=== PATIENT | female | born 1985 | race Caucasian/White ===

== ENCOUNTER 2020-03-19 06:21 | Emergency (ER) | payer BC, MEDICAID ==
[~2020-03-19] VITALS: Ht 167.7 cm; Wt 85.6 kg
[2020-03-19] MEDS ORDERED: LIDOCAINE 1% INJ 20 ML 20 ML VIAL ONE (06:24)
--- OUTSIDE RECORDS SUMMARY | 2020-03-19 06:32 | XMS REPORT | Continuity of Care Document ---
Author Organization Unknown Address Unknown Phone Unavailable Allergies There is no data. Medications There is no data. Problems There is no data. Procedures There is no data. Results Test Result Range SUREPATH PAP AND HPV mRNA E6/E7 REFLEX G ENOTYPES 16, 18/45 - 06/15/19 17:49 CLINICAL INFORMATION: NRG LMP: 05/28/2019 NRG PREV. PAP: 01/04/2018 NRG PREV. BX: NRG SOURCE: Cervix NRG STATEMENT OF ADEQUACY: NRG INTERPRETATION/RESULT: NRG CONTROL ROOM TENDER: NRG HPV mRNA E6/E7, SUREPATH VIAL Not Detected NOT DETECTED COMMENT NRG CULTURE, GENITAL - 06/15/19 17:49 CULTURE, GENITAL SEE NOTE NRG Encounters ACCT No. Visit Date/Time Discharge Status Pt. Type Provider Facility Loc./Unit Complaint [id number] 12/27/2019 13:00:00 12/27/2019 23:59: 59 CLS Outpatient [facility] MARIJA POWELL [facility] [id number] 06/15/2019 17:00:00 Document Registration
--- OUTSIDE RECORDS SUMMARY | 2020-03-19 06:32 | XMS REPORT ---
Author Author Cinda Pat Organization [facility] Address [address] [place] [address] Care Team Providers Care Production Line Welder Name Role Phone ramaGEORGIASUMIRENEEDAVID Unavailable PROBLEMS Type Condition ICD9-CM Code [id number] Code Onset Dates Condition S tatus SNOMED Code Problem Secondary female infertility N97.9 Jul, 201 8 Active 49023843 Problem Mild intermittent asthma with exacerbation J45.21 Active [id number] ALLERGIES No Information ENCOUNTERS Encounter Location Date Diagnosis [place] [id number] [place] [address] Dec, Mild intermittent asthma wit h exacerbation J45.[address] [id number] [place] [address] Nov, Acute non-recurrent pansinus itis J01.40 [facility] [address] [id number] [place] [address] 16 Nov, 2019 Acute nasopharyngitis J00 an d Exposure to influenza Z20.828 [facility] [address] [facility] [id number] [address] [place] [address] Oct, [address] [id number] [place] [address] Oct, [facility] [address] [id number] [place] [address] Sep, Mild intermittent asthma wit h exacerbation J45.21 and Pharyngitis, unspecified etiology J02.[address] [id number] [place] [address] Aug, Breast tenderness N64.[address] [id number] [place] [address] Jul, Acute non-recurrent pansinus itis J01.40 and Cough in adult patient R05 [facility] MARIJA POWELL [address] [id number] [place] [address] May, [facility] MARIJA POWELL [address] [id number] [place] [address] May, Well woman exam Z01.419 [facility] MARIJA POWELL [address] [id number] [place] [address] May, [facility] MARIJA POWELL [address] [id number] [place] [address] February, [facility] MARIJA POWELL [address] [id number] [place] [address] Jan, [facility] MARIJA POWELL [address] [id number] [place] [address] Dec, Plantar fasciitis, bilateral M72.2 [facility] [address] [facility] [id number] [address] [place] [phone] Oct, [facility] [address] [facility] [id number] [address] [place] [phone] Oct, [facility] [address] [facility] [id number] [address] [place] [address] Sep, [facility] [address] [facility] [id number] [address] [place] [phone] Sep, IMMUNIZATIONS No Known Immunizations SOCIAL HISTORY Never Assessed REASON FOR VISIT PLAN OF CARE VITAL SIGNS MEDICATIONS Medication Instructions Dosage Frequency Start Date End Date Duration S tatus Albuterol Sulfate HFA 108 (90 Base) MCG/ACT Inhalation every 6 hrs 2 puffs as needed 6h Jan, 30 days Active RESULTS No Results PROCEDURES No Known procedures INSTRUCTIONS MEDICATIONS ADMINISTERED No Known Medications MEDICAL (GENERAL) HISTORY Type Description Date Medical History asthma Medical History Secondary female infertility Medical History acid reflux Surgical History section 12/2004 Surgical History dilatation and curettage Hospitalization History see surgeries
--- OUTSIDE RECORDS SUMMARY | 2020-03-19 06:32 | XMS REPORT ---
Author Author Cinda BERNARDO Organization [facility] Address [address] [place] [address] Care Team Providers Care Baker Pastry Name Role Phone BERNARDO, DAVID Unavailable PROBLEMS Type Condition ICD9-CM Code [id number] Code Onset Dates Condition S tatus SNOMED Code Problem Secondary female infertility 628.9 Jul, 201 8 0 [id number] Problem Secondary female infertility N97.9 Jul, 201 8 0 [id number] ALLERGIES No Known Allergies ENCOUNTERS Encounter Location Date Diagnosis [facility] [address] [place] [phone] Dec, Plantar fasciitis, bilateral M72.2 [facility] [address] [facility] [id number] [address] [place] [phone] Oct, [facility] [address] [facility] [id number] [address] [place] [phone] Oct, [facility] [address] [facility] [id number] [address] [place] [phone] Sep, [facility] [address] [facility] [id number] [address] [place] [phone] Sep, IMMUNIZATIONS No Known Immunizations SOCIAL HISTORY Never Assessed REASON FOR VISIT Foot Pain, swelling in feet, painful to stand over 20 min PLAN OF CARE VITAL SIGNS Height 69 in 2018-12-26 Weight 202 lbs 2018-12-26 BMI 29.83 kg/m2 2018-12-26 Blood pressure systolic 119 mmHg 2018-12-26 Blood pressure diastolic 70 mmHg 2018-12-26 MEDICATIONS Medication Instructions Dosage Frequency Start Date End Date Duration S tatus Allergy Active Naproxen 500 MG Orally every 12 hrs 1 tablet with food or milk as n eeded 12h 04 Dec, 2018 14 days Active Flonase 50 MCG/ACT Nasally Once a day 1 spray in each nostril 24h 30 day(s) Active Multi Vitamin - Orally Once a day 1 tablet 24h 30 da y(s) Active Albuterol Sulfate HFA 108 (90 Base) MCG/ACT Inhalation every 6 hrs 2 puffs as needed 6h Active RESULTS No Results PROCEDURES No Known procedures INSTRUCTIONS MEDICATIONS ADMINISTERED No Known Medications MEDICAL (GENERAL) HISTORY Type Description Date Medical History asthma
[2020-03-19] MEDS ORDERED: ONDANSETRON 4 MG (ZOFRAN) ORAL DISSOLVE TAB PO STA (06:38)
--- NOTE | 2020-03-19 06:44 | ED Head Injury ---
General Stated Complaint: LAC TO FOREHEAD Source: patient Exam Limitations: no limitations History of Present Illness Date Seen by Provider: March 19, 2020 Time Seen by Provider: 06:28 Initial Comments A patient is a 34-year-old female who presents for evaluation of a forehead laceration. She states that she was getting out of bed to turn off her alarm this morning and lost her balance and fell hitting her forehead on the ground. She does not believe that she lost consciousness. There is an approximately 3cm laceration to the upper right forehead. She reports some nausea and a headache as well as some mild neck pain. She denies shortness of breath, chest pain, abdominal or back pain, vision changes, focal weakness or numbness, loss of consciousness, confusion, difficulty speaking, difficulty walking, or vomiting. She is unsure of her tetanus immunization status this will be updated today. Occurred: just prior to arrival Severity: moderate Location: frontal Method of Injury: fell Loss of Consciousness: no loss of consciousness Associated Systoms: Headaches, Nausea/Vomiting (nausea only) Allergies and Home Medications Allergies Coded Allergies: No Known Drug Allergies (Unverified , 03/19/20) Patient Home Medication List Home Medication List Reviewed: Yes Review of Systems Review of Systems Constitutional: no symptoms reported Eyes: No Symptoms Reported Ears, Nose, Mouth, Throat: no symptoms reported Respiratory: no symptoms reported Cardiovascular: no symptoms reported Gastrointestinal: nausea; No vomiting Genitourinary: no symptoms reported Musculoskeletal: no symptoms reported, neck pain Skin: no symptoms reported Psychiatric/Neurological: No Symptoms Reported, Headache Endocrine: No Symptoms Reported Hematologic/Lymphatic: No Symptoms Reported All Other Systems Reviewed Negative Unless Noted: Yes Past Amenvte-Ssnbhn-Mtnjtl Hx Past Med/Social Hx: Reviewed Nursing Past Med/Soc Hx Patient Social History Recent Foreign Travel: No Contact w/Someone Who Travel: No Physical Exam Vital Signs Vital Signs - First Documented 03/19/20 06:30 Temp 36.2 Pulse 71 Resp 20 B/P (MAP) 120/76 (91) Pulse Ox 95 O2 Delivery Room Air Capillary Refill : Height, Weight, BMI Height: '" Weight: lbs. oz. kg; BMI Method: General Appearance: WD/WN, no apparent distress HEENT: PERRL/EOMI, normal ENT inspection, pharynx normal, other (angled laceration (down and to left) at upper forehead just left of midline, 3cm, no active bleeding) Neck: full range of motion, supple, tender lateral (on right) Cardiovascular: regular rate, rhythm, no edema, no JVD Respiratory: lungs clear, normal breath sounds, no respiratory distress, no accessory muscle use Back: normal inspection, no CVA tenderness, no vertebral tenderness Extremities: normal range of motion, non-tender, no pedal edema Psychiatric: alert, oriented x 3 Crainal Nerves: normal hearing, normal speech, PERRL Coordination/Gait: normal gait Skin: normal color, warm/dry Lisandra Coma Score Best Eye Response: (4) Open Spontaneously Best Verbal Response: (5) Oriented Best Motor Response: (6) Obeys Commands Procedures/Interventions Wound Location: Face (upper forehead) Wound Length (cm): 3 Wound's Depth, Shape: superficial Wound Explored: clean Irrigated w/ Saline (ccs): 250 Anesthesia: 1% Lidocaine Suture: Monocryl Suture Size: 5-0 Number of Sutures: 4 Layer Closure?: 1 Number Deep Layer Sutures: 0 Sterile Dressing Applied?: Yes Progress Patient tolerated the repair well. No complications. Progress/Results/Core Measures Results/Orders My Orders Orders - ARMAAN NANCE DO Lidocaine 1% Inj 20 Ml (Xylocaine 1% Inj (03/19/20 06:24) Lidocaine 1% Inj 20 Ml (Xylocaine 1% Inj (03/19/20 06:45) Dipht,Pertuss(Acell),Tet Adult (Boostrix (03/19/20 06:45) Ct Head/Cervical Spine Wo (03/19/20 06:34) Ondansetron Oral Dissolve Tab (Zofran (03/19/20 06:38) Acetaminophen Tablet (Tylenol Tablet) (03/19/20 06:45) Medications Given in ED Current Medications Medications Dose Ordered Sig/Oscar Route Start Time Stop Time Status Last Admin Dose Admin Acetaminophen 1,000 mg ONCE ONCE PO 03/19/20 06:45 03/19/20 06:46 DC 03/19/20 07:33 1,000 MG Diphtheria/ Tetanus/Acell Pertussis 0.5 ml ONCE ONCE IM 03/19/20 06:45 03/19/20 06:46 DC 03/19/20 07:34 0.5 ML Lidocaine HCl 20 ml ONCE ONCE INJ 03/19/20 06:45 03/19/20 06:46 DC 03/19/20 07:35 20 ML Vital Signs/I&O 03/19/20 06:30 Temp 36.2 Pulse 71 Resp 20 B/P (MAP) 120/76 (91) Pulse Ox 95 O2 Delivery Room Air Progress Progress Note : Progress Note @0755 - patient tolerated the suture repair well. She's been updated on her imaging results which are acutely unremarkable. She'll go home with a prescription for Zofran for her mild nausea. She has not vomited since arrival. Advised the patient to have the sutures removed in 5 days and to return to the emergency Department immediately for new or worsening symptoms. She expresses verbal understanding and agreement with the plan and is stable for discharge. Diagnostic Imaging Diagonstic Imaging: CT Comments TECHNIQUE: Multiple contiguous axial images were obtained through the brain and cervical spine without the use of intravenous contrast. Sagittal and coronal reformations through the cervical spine were then performed. Auto Exposure Controls were utilized during the CT exam to meet ALARA standards for radiation dose reduction. INDICATION: Head and neck pain after fall. FINDINGS: The ventricles and sulci are within normal limits. There is no hydrocephalus or cerebral edema. There is no midline shift or mass effect. There is no intracranial mass, hemorrhage or extra-axial fluid collection. The visualized paranasal sinuses and mastoid air cells are clear. No fractures are identified. CERVICAL SPINE: Alignment is normal. There is no fracture or traumatic subluxation. The prevertebral soft tissues are within normal limits. The odontoid is intact and the lateral masses are well aligned. There are no soft tissue abnormalities. IMPRESSION: 1. No acute intracranial process. 2. No focal abnormality in the cervical spine. Dictated by: Dictated on workstation # [id number] Dict: 03/19/20 0745 Trans: 03/19/20 0748 [facility] 6280-5026 Interpreted by: JAYNE COLIN MD Electronically signed by: JAYNE COLIN MD 03/19/2048 Departure Impression Primary Impression: Forehead laceration Additional Impression: Closed head injury Disposition: 01 HOME, SELF-CARE Condition: Stable Departure-Patient Inst. Decision time for Depature: 07:58 Referrals: MIGNON DAWKINS APRN (PCP/Family) Primary Care Physician Patient Instructions: Closed Head Injury (DC), Laceration Repair Add. Discharge Instructions: Your stitches will need to be removed in 5 days. He can return to the emergency department or go to your doctor's office to have them removed. Return to the emergency Department immediately for new or worsening symptoms. Scripts Ondansetron (Ondansetron Odt) 4 Mg Tab.rapdis 4 MG PO Q6H PRN for NAUSEA/VOMITING for 7 Days, #20 TAB 0 Refills Prov: ARMAAN NANCE DO 03/19/20 ARMAAN NANCE DO March 19, 2020 06:44
[2020-03-19] MEDS ORDERED: ACETAMINOPHEN 500 MG TAB (TYLENOL) PO ONE (06:45)
[2020-03-19] MEDS ORDERED: LIDOCAINE 1% INJ 20 ML 20 ML VIAL INJ ONE (06:45)
[2020-03-19] MEDS ORDERED: TETANUS,DIPTH,PERTUSS P/F (BOOSTRIX) 0.5 ML VIAL IM ONE (06:45)
--- NOTE | 2020-03-19 07:48 | Diagnostic Imaging Report ---
PROCEDURE: CT head and CT cervical spine without contrast. TECHNIQUE: Multiple contiguous axial images were obtained through the brain and cervical spine without the use of intravenous contrast. Sagittal and coronal reformations through the cervical spine were then performed. Auto Exposure Controls were utilized during the CT exam to meet ALARA standards for radiation dose reduction. INDICATION: Head and neck pain after fall. FINDINGS: The ventricles and sulci are within normal limits. There is no hydrocephalus or cerebral edema. There is no midline shift or mass effect. There is no intracranial mass, hemorrhage or extra-axial fluid collection. The visualized paranasal sinuses and mastoid air cells are clear. No fractures are identified. CERVICAL SPINE: Alignment is normal. There is no fracture or traumatic subluxation. The prevertebral soft tissues are within normal limits. The odontoid is intact and the lateral masses are well aligned. There are no soft tissue abnormalities. IMPRESSION: 1. No acute intracranial process. 2. No focal abnormality in the cervical spine. Dictated by: Dictated on workstation # [id number]
[2020-03-19] MEDS ORDERED: ONDA4TAB11 PO (08:08)
[2020-03-19 08:20] VITALS: BP 126/74
== END 2020-03-19 08:20 | disposition home or self-care (01) ==
LOC: ER FS 06:26
DX: S09.90XA Unspecified injury of head, initial encounter (principal); S01.81XA Laceration without foreign body of other part of head, initial encounter; R40.2142 Coma scale, eyes open, spontaneous, at arrival to emergency department; R40.2252 Coma scale, best verbal response, oriented, at arrival to emergency department; R40.2362 Coma scale, best motor response, obeys commands, at arrival to emergency department; Z23 Encounter for immunization; W18.39XA Other fall on same level, initial encounter; W22.8XXA Striking against or struck by other objects, initial encounter
CPT/HCPCS: 70450; 72125; 90471; 90715

== ENCOUNTER 2020-06-20 22:54 | Emergency (ER) | payer BC, MEDICAID ==
[~2020-06-20] VITALS: Ht 175 cm; Wt 84.0 kg
[~2020-06-20 22:54] MED LIST: ONDA4TAB11 PO
[2020-06-20 23:23] LABS: BASOPHILS % (AUTO) 1 % (0-10); EOSINOPHILS % (AUTO) 0 % (0-10); HEMATOCRIT 42 % (35-52); HEMOGLOBIN 14.4 G/DL (11.5-16.0); LYMPHOCYTES # (AUTO) 0.5 X 10^3 (1.0-4.0); LYMPHOCYTES % (AUTO) 9 % (12-44); MEAN CORPUSCULAR HEMOGLOBIN 29 PG (25-34); MEAN CORPUSCULAR HGB CONC 35 G/DL (32-36); MEAN CORPUSCULAR VOLUME 85 FL (80-99); MONOCYTES # (AUTO) 0.5 X 10^3 (0.0-1.0); MONOCYTES % (AUTO) 9 % (0-12); NEUTROPHILS # (AUTO) 4.7 X 10^3 (1.8-7.8); NEUTROPHILS % (AUTO) 81 % (42-75); PLATELET COUNT 234 10^3/uL (130-400); RED CELL DISTRIBUTION WIDTH 12.5 % (10.0-14.5); WHITE BLOOD COUNT 5.8 10^3/uL (4.3-11.0)
--- NOTE | 2020-06-20 23:24 | ED Fever ---
History of Present Illness General Chief Complaint: Fever-Adult/Adol Stated Complaint: FLU LIKE SYMPTOMS Source: patient Exam Limitations: no limitations History of Present Illness Date Seen by Provider: Jun 20, 2020 Time Seen by Provider: 23:10 Initial Comments The patient is a pleasant 35-year-old female who presents for evaluation of fever and body aches for 1 day. She denies chest pain or shortness of breath, sore throat, nausea or vomiting, diarrhea, abdominal or back pain, headache, neck pain or stiffness, or urinary complaints. She states that she lives with her child who is not having any symptoms and no one else. She is alert and oriented 4, calm, and appears to be in no distress this time. 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 Associated Symptoms: denies symptoms Allergies and Home Medications Allergies Coded Allergies: No Known Drug Allergies (Unverified , 03/19/20) Home Medications Ondansetron 4 Mg Tab.rapdis, 4 MG PO Q6H PRN for NAUSEA/VOMITING Prescribed by: ARMAAN NANCE on 03/19/20 0808 Patient Home Medication List Home Medication List Reviewed: Yes Review of Systems Review of Systems Constitutional: fever EENTM: no symptoms reported Respiratory: no symptoms reported Cardiovascular: no symptoms reported Gastrointestinal: no symptoms reported Genitourinary: no symptoms reported Musculoskeletal: no symptoms reported, other (body aches) Skin: no symptoms reported Psychiatric/Neurological: No Symptoms Reported Hematologic/Lymphatic: No Symptoms Reported Immunological/Allergic: no symptoms reported All Other Systems Reviewed Negative Unless Noted: Yes Past Wsrgodv-Gnzqxf-Urbucg Hx Past Med/Social Hx: Reviewed Nursing Past Med/Soc Hx Patient Social History Type Used: Cigarettes Recent Foreign Travel: No Contact w/Someone Who Travel: No Past Medical History Surgeries: Yes Section Respiratory: No Cardiac: No Neurological: No Genitourinary: No Gastrointestinal: No Musculoskeletal: No Endocrine: No HEENT: No Cancer: No Psychosocial: No Integumentary: No Physical Exam Vital Signs - First Documented 06/20/20 23:05 Temp 38.2 Pulse 95 Resp 20 B/P (MAP) 129/81 (97) Pulse Ox 100 O2 Delivery Room Air Capillary Refill : Height: '" Weight: lbs. oz. kg; 30.00 BMI Method: General Appearance: WD/WN, no apparent distress Eyes: Bilateral Eye Normal Inspection, Bilateral Eye PERRL, Bilateral Eye EOMI HEENT: PERRL/EOMI, pharynx normal Neck: non-tender, full range of motion, supple Respiratory: lungs clear, normal breath sounds, no respiratory distress, no accessory muscle use Cardiovascular: regular rate, rhythm, no edema, no murmur Gastrointestinal: normal bowel sounds, non tender, soft, no pulsatile mass Extremities: non-tender, no pedal edema, normal capillary refill Neurologic/Psychiatric: no motor/sensory deficits, alert, normal mood/affect, oriented x 3 Skin: normal color, warm/dry Procedures/Interventions Suture Size: 5-0 Progress/Results/Core Measures Suspected Sepsis SIRS Temperature: Pulse: Respiratory Rate: Laboratory Tests 06/20/20 23:10: White Blood Count 5.8 Blood Pressure / Mean: Laboratory Tests 06/20/20 23:10: Creatinine 0.99, Platelet Count 234, Total Bilirubin 0.6 Results/Orders Lab Results Laboratory Tests Test 06/20/20 23:10 06/20/20 23:30 Range/Units White Blood Count 5.8 4.3-11.0 10^3/uL Red Blood Count 4.89 4.35-5.85 10^6/uL Hemoglobin 14.4 11.5-16.0 G/DL Hematocrit 42 35-52 % Mean Corpuscular Volume 85 80-99 FL Mean Corpuscular Hemoglobin 29 25-34 PG Mean Corpuscular Hemoglobin Concent 35 32-36 G/DL Red Cell Distribution Width 12.5 10.0-14.5 % Platelet Count 234 130-400 10^3/uL Mean Platelet Volume 11.0 H 7.4-10.4 FL Neutrophils (%) (Auto) 81 H 42-75 % Lymphocytes (%) (Auto) 9 L 12-44 % Monocytes (%) (Auto) 9 0-12 % Eosinophils (%) (Auto) 0 0-10 % Basophils (%) (Auto) 1 0-10 % Neutrophils # (Auto) 4.7 1.8-7.8 X 10^3 Lymphocytes # (Auto) 0.5 L 1.0-4.0 X 10^3 Monocytes # (Auto) 0.5 0.0-1.0 X 10^3 Eosinophils # (Auto) 0.0 0.0-0.3 10^3/uL Basophils # (Auto) 0.0 0.0-0.1 10^3/uL Sodium Level 136 135-145 MMOL/L Potassium Level 3.6 3.6-5.0 MMOL/L Chloride Level 102 98-107 MMOL/L Carbon Dioxide Level 19 L 21-32 MMOL/L Anion Gap 15 H 5-14 MMOL/L Blood Urea Nitrogen 6 L 7-18 MG/DL Creatinine 0.99 0.60-1.30 MG/DL Estimat Glomerular Filtration Rate > 60 BUN/Creatinine Ratio 6 Glucose Level 105 70-105 MG/DL Calcium Level 9.2 8.5-10.1 MG/DL Corrected Calcium 9.0 8.5-10.1 MG/DL Total Bilirubin 0.6 0.1-1.0 MG/DL Aspartate Amino Transf (AST/SGOT) 12 5-34 U/L Alanine Aminotransferase (ALT/SGPT) 11 0-55 U/L Alkaline Phosphatase 81 40-136 U/L Total Protein 7.7 6.4-8.2 GM/DL Albumin 4.3 3.2-4.5 GM/DL Urine Color RED H Urine Clarity CLOUDY Urine pH 8.0 5-9 Urine Specific [place] 1.020 1.016-1.022 Urine Protein 1+ H NEGATIVE Urine Glucose (UA) NEGATIVE NEGATIVE Urine Ketones 2+ H NEGATIVE Urine Nitrite NEGATIVE NEGATIVE Urine Bilirubin 1+ H NEGATIVE Urine Urobilinogen 0.2 < = 1.0 MG/DL Urine Leukocyte Esterase TRACE H NEGATIVE Urine RBC (Auto) 3+ H NEGATIVE Urine RBC TNTC H /HPF Urine WBC 10-25 H /HPF Urine Squamous Epithelial Cells >50 H /HPF Urine Crystals NONE /LPF Urine Bacteria LARGE H /HPF Urine Casts NONE /LPF Urine Mucus NEGATIVE /LPF Urine Culture Indicated YES My Orders Orders - ARMAAN NANCE DO Cbc With Automated Diff (06/20/20 23:17) Comprehensive Metabolic Panel (06/20/20 23:17) Ns Iv 1000 Ml (Sodium Chloride 0.9%) (06/20/20 23:30) Acetaminophen Tablet (Tylenol Tablet) (06/20/20 23:30) Ketorolac Injection (Toradol Injection) (06/20/20 23:30) Urine Bedside (06/20/20 23:17) Ua Culture If Indicated (06/20/20 23:17) Ed Iv/Invasive Line Start (06/20/20 23:22) Urine Culture (06/20/20 23:30) Medications Given in ED Current Medications Medications Dose Ordered Sig/Oscar Route Start Time Stop Time Status Last Admin Dose Admin Acetaminophen 1,000 mg ONCE ONCE PO 06/20/20 23:30 06/20/20 23:31 DC 06/20/20 23:23 1,000 MG Ketorolac Tromethamine 30 mg ONCE ONCE IVP 06/20/20 23:30 06/20/20 23:31 DC 06/20/20 23:23 30 MG Vital Signs/I&O 06/20/20 23:05 Temp 38.2 Pulse 95 Resp 20 B/P (MAP) 129/81 (97) Pulse Ox 100 O2 Delivery Room Air Capillary Refill : Progress Note : Progress Note @2350 - patient updated on lab results which are acutely unremarkable. There is some evidence of a contaminated urine specimen however given the fever the patient will go home with antibiotics for treatment. I do feel that this is not the primary source of infection. Advised the patient to follow up with her PCP in the next 2-3 days and to return to the emergency Department immediately for new or worsening symptoms. The patient understands that she was tested for the coronavirus today and the results will likely take a few days to come back and that she needs to self quarantine and stay away from others until she learns the results. Departure Impression Primary Impression: Influenza-like symptoms Additional Impression: UTI (urinary tract infection) Disposition: 01 HOME, SELF-CARE Condition: Stable Departure-Patient Inst. Decision time for Depature: 23:55 Referrals: MIGNON DAWKINS APRN (PCP/Family) Primary Care Physician Patient Instructions: Viral Syndrome (DC), Urinary Tract Infections in Adults Add. Discharge Instructions: You were tested for the coronavirus today and those results may take a few days to come back. Please self quarantine and stay away from others and to another results. Follow-up with your doctor in the next 2-3 days. Drink plenty of fluids to stay well hydrated. Take Tylenol or ibuprofen at home for fever relief is needed. Take the prescribed antibiotic for a urinary tract infection as prescribed. Scripts Cephalexin (Keflex) 500 Mg Capsule 500 MG PO BID for 5 Days, #10 CAP Prov: ARMAAN NANCE DO 06/20/20 ARMAAN NANCE DO Jun 20, 2020 23:24
[2020-06-20] MEDS ORDERED: NS IV 1000 ML 1,000 ML IV SCH (23:30)
[2020-06-20] MEDS ORDERED: KETOROLAC 30 MG/ML VIAL IVP ONE (23:30)
[2020-06-20] MEDS ORDERED: ACETAMINOPHEN 500 MG TAB (TYLENOL) PO ONE (23:30)
[2020-06-20 23:39] LABS: BILIRUBIN,URINE 1+ (NEGATIVE); CLARITY,URINE CLOUDY; COLOR,URINE RED; GLUCOSE, URINE (UA) NEGATIVE (NEGATIVE); KETONES,URINE 2+ (NEGATIVE); NITRITE,URINE NEGATIVE (NEGATIVE); PROTEIN,URINE 1+ (NEGATIVE)
[2020-06-20 23:40] LABS: BACTERIA,URINE LARGE /HPF; LEUKOCYTE ESTERASE ,URINE TRACE (NEGATIVE); RBC,URINE TNTC /HPF; SQUAMOUS EPITHELIAL CELL,UR >50 /HPF
[2020-06-20 23:41] LABS: ALANINE AMINOTRANSFERASE 11 U/L (0-55); ALBUMIN 4.3 GM/DL (3.2-4.5); ALKALINE PHOSPHATASE 81 U/L (40-136); BILIRUBIN,TOTAL 0.6 MG/DL (0.1-1.0); BUN/CREATININE RATIO 6; CALCIUM 9.2 MG/DL (8.5-10.1); CARBON DIOXIDE 19 MMOL/L (21-32); CHLORIDE 102 MMOL/L (98-107); CREATININE SERUM 0.99 MG/DL (0.60-1.30); GFR ESTIMATED > 60; GLUCOSE 105 MG/DL (70-105); POTASSIUM 3.6 MMOL/L (3.6-5.0); SODIUM 136 MMOL/L (135-145); TOTAL PROTEIN 7.7 GM/DL (6.4-8.2)
[2020-06-20] MEDS ORDERED: CEPH-507 PO (23:56)
[2020-06-21 00:05] VITALS: BP 128/74
== END 2020-06-21 00:16 | disposition home or self-care (01) ==
LOC: EDUNIT# 22:54 → ER FS 22:55
DX: U07.1 COVID-19 (principal); N39.0 Urinary tract infection, site not specified
CPT/HCPCS: 36415; 80053; 81000; 84703; 85025; 87088; 99284; U0002; 87635

== ENCOUNTER 2020-08-11 11:55 | Emergency (ER) | payer MEDICAID ==
[~2020-08-11] VITALS: Ht 175.3 cm; Wt 81.4 kg
[~2020-08-11 11:55] MED LIST changes: +CEPH-507 PO
[2020-08-11 12:10] LABS: CLARITY,URINE CLOUDY; COLOR,URINE RED
[2020-08-11] MEDS ORDERED: NS IV 1000 ML 1,000 ML IV STA (12:13)
[2020-08-11 12:17] LABS: BACTERIA,URINE TRACE /HPF; BILIRUBIN,URINE NEGATIVE (NEGATIVE); GLUCOSE, URINE (UA) NEGATIVE (NEGATIVE); KETONES,URINE NEGATIVE (NEGATIVE); LEUKOCYTE ESTERASE ,URINE NEGATIVE (NEGATIVE); NITRITE,URINE NEGATIVE (NEGATIVE); PROTEIN,URINE 1+ (NEGATIVE); RBC,URINE TNTC /HPF
[2020-08-11 12:29] LABS: HEMATOCRIT 41 % (35-52); HEMOGLOBIN 14.2 G/DL (11.5-16.0); LYMPHOCYTES % (AUTO) 25 % (12-44); MEAN CORPUSCULAR HEMOGLOBIN 29 PG (25-34); MEAN CORPUSCULAR HGB CONC 35 G/DL (32-36); MEAN CORPUSCULAR VOLUME 84 FL (80-99); MEAN PLATELET VOLUME 10.3 FL (7.4-10.4); NEUTROPHILS % (AUTO) 69 % (42-75); PLATELET COUNT 368 10^3/uL (130-400); WHITE BLOOD COUNT 7.8 10^3/uL (4.3-11.0)
[2020-08-11 12:30] LABS: BASOPHILS % (AUTO) 1 % (0-10); EOSINOPHILS % (AUTO) 0 % (0-10); MONOCYTES # (AUTO) 0.3 X 10^3 (0.0-1.0); MONOCYTES % (AUTO) 4 % (0-12); NEUTROPHILS # (AUTO) 5.4 X 10^3 (1.8-7.8)
--- NOTE | 2020-08-11 12:38 | ED GU-Female ---
General Chief Complaint: OB < 20 WEEKS Stated Complaint: VAGINAL BLEEDING Nursing Triage Note: Patient reports vaginal bleeding since 08/02/2020, states she saw some dark tissue. States she believes she may be having a miscarriage. She states she has bled through 3 tampons so far today while at work. Nursing Sepsis Screen: No Definite Risk Source: patient History of Present Illness Date Seen by Provider: Aug 11, 2020 Time Seen by Provider: 11:57 Initial Comments 35-year-old female presenting with complaints of vaginal bleeding since August 02. She reports that she has been bleeding since 02 August and thought that she was having a miscarriage. Today she has bled through 3 tampons. She was having some pelvic pain and cramping today. She denies any dizziness or lightheadedness. She has no fever or chills. She denies any pain with urination. She reports that she has had multiple miscarriages since September. She has a history of abnormal Pap smears and a molar . She was concerned that she was having a miscarriage and that she was bleeding a lot today. She denies any nausea or vomiting. She reports seen some tissue in the bleeding when this started on 02 August, but none since. her last normal menstrual period was July 14. Allergies and Home Medications Allergies Coded Allergies: No Known Drug Allergies (Unverified , 03/19/20) Home Medications Medroxyprogesterone Acetate 10 Mg Tablet, 10 MG PO DAILY Prescribed by: SID GAYLE on 08/11/20 8849 Patient Home Medication List Home Medication List Reviewed: Yes Review of Systems Review of Systems Constitutional: No chills, No dizziness, No fever, No malaise EENTM: no symptoms reported Respiratory: no symptoms reported Cardiovascular: no symptoms reported Gastrointestinal: no symptoms reported Genitourinary: see HPI Musculoskeletal: no symptoms reported Skin: no symptoms reported Psychiatric/Neurological: No Symptoms Reported Endocrine: No Symptoms Reported Hematologic/Lymphatic: Denies Blood Clots, Denies Easy Bleeding, Denies Easy Bruising Past Swwgnnh-Lczcug-Ghvhgf Hx Past Med/Social Hx: Reviewed Nursing Past Med/Soc Hx Patient Social History Alcohol Use: Denies Use Recreational Drug Use: No Smoking Status: Current Everyday Smoker Type Used: Cigarettes, Electronic/Vapor 2nd Hand Smoke Exposure: No Recent Foreign Travel: No Contact w/Someone Who Travel: No Recent Infectious Disease Expo: No Recent Hopitalizations: No Physical Abuse: No Sexual Abuse: No Mistreated: No Fear: No Seasonal Allergies Seasonal Allergies: No Past Medical History Surgeries: Yes Section Respiratory: No Cardiac: No Neurological: No Genitourinary: No Gastrointestinal: No Musculoskeletal: No Endocrine: No HEENT: No Cancer: No Psychosocial: No Integumentary: No Physical Exam Vital Signs Vital Signs - First Documented 08/11/20 12:02 Temp 36.6 Pulse 116 Resp 16 B/P (MAP) 175/111 (132) Pulse Ox 98 O2 Delivery Room Air Capillary Refill : Less Than 3 Seconds Height, Weight, BMI Height: '" Weight: lbs. oz. kg; 26.00 BMI Method: General Appearance: WD/WN, mild distress HEENT: PERRL/EOMI, TMs normal, pharynx normal Neck: non-tender, full range of motion, supple, normal inspection Cardiovascular: normal peripheral pulses, no edema, no gallop, no murmur, tachycardia Respiratory: chest non-tender, lungs clear, normal breath sounds Gastrointestinal: normal bowel sounds, soft, no pulsatile mass, tenderness (pelvis/suprapubic area) Extremities: normal range of motion, non-tender, normal capillary refill Neurologic/Psychiatric: heel cover softener II-XII nml as tested, no motor/sensory deficits, alert, oriented x 3 Skin: normal color, warm/dry Procedures/Interventions Suture Size: 5-0 Progress/Results/Core Measures Suspected Sepsis Recent Fever Within 48 Hours: No Infection Criteria Present: None New/Unexplained Altered Menta: No Sepsis Screen: No Definite Risk SIRS Temperature: Pulse: 116 Respiratory Rate: 16 Laboratory Tests 08/11/20 12:20: White Blood Count 7.8 Blood Pressure 175 /111 Mean: 132 Laboratory Tests 08/11/20 12:20: INR Comment 1.0, Platelet Count 368 Results/Orders Lab Results Laboratory Tests Test 08/11/20 12:05 08/11/20 12:20 Range/Units Urine Color RED H Urine Clarity CLOUDY H Urine pH 6.0 5-9 Urine Specific Seaman >=1.030 1.016-1.022 Urine Protein 1+ H NEGATIVE Urine Glucose (UA) NEGATIVE NEGATIVE Urine Ketones NEGATIVE NEGATIVE Urine Nitrite NEGATIVE NEGATIVE Urine Bilirubin NEGATIVE NEGATIVE Urine Urobilinogen 0.2 < = 1.0 MG/DL Urine Leukocyte Esterase NEGATIVE NEGATIVE Urine RBC (Auto) 3+ H NEGATIVE Urine RBC TNTC H /HPF Urine WBC 2-5 /HPF Urine Squamous Epithelial Cells 2-5 /HPF Urine Crystals NONE /LPF Urine Bacteria TRACE /HPF Urine Casts NONE /LPF Urine Mucus SMALL H /LPF Urine Culture Indicated NO White Blood Count 7.8 4.3-11.0 10^3/uL Red Blood Count 4.92 4.35-5.85 10^6/uL Hemoglobin 14.2 11.5-16.0 G/DL Hematocrit 41 35-52 % Mean Corpuscular Volume 84 80-99 FL Mean Corpuscular Hemoglobin 29 25-34 PG Mean Corpuscular Hemoglobin Concent 35 32-36 G/DL Red Cell Distribution Width 11.8 10.0-14.5 % Platelet Count 368 130-400 10^3/uL Mean Platelet Volume 10.3 7.4-10.4 FL Immature Granulocyte % (Auto) 1 % Neutrophils (%) (Auto) 69 42-75 % Lymphocytes (%) (Auto) 25 12-44 % Monocytes (%) (Auto) 4 0-12 % Eosinophils (%) (Auto) 0 0-10 % Basophils (%) (Auto) 1 0-10 % Neutrophils # (Auto) 5.4 1.8-7.8 X 10^3 Lymphocytes # (Auto) 2.0 1.0-4.0 X 10^3 Monocytes # (Auto) 0.3 0.0-1.0 X 10^3 Eosinophils # (Auto) 0.0 0.0-0.3 10^3/uL Basophils # (Auto) 0.0 0.0-0.1 10^3/uL Immature Granulocyte # (Auto) 0.0 0.0-0.1 10^3/uL Prothrombin Time 13.5 12.2-14.7 SEC INR Comment 1.0 0.8-1.4 Activated Partial Thromboplast Time 28 24-35 SEC Human Chorionic Gonadotropin, Quant < 5 <5 MIU/ML My Orders Orders - SID GAYLE MD Ua Culture If Indicated (08/11/20 12:01) Urine Bedside (08/11/20 12:01) Ed Iv/Invasive Line Start (08/11/20 12:13) Cbc With Automated Diff (08/11/20 12:13) Hcg,Quantitative (08/11/20 12:13) Protime With Inr (08/11/20 12:13) Partial Thromboplastin Time (08/11/20 12:13) Ns Iv 1000 Ml (Sodium Chloride 0.9%) (08/11/20 12:13) Vital Signs/I&O 08/11/20 12:02 Temp 36.6 Pulse 116 Resp 16 B/P (MAP) 175/111 (132) Pulse Ox 98 O2 Delivery Room Air Capillary Refill : Less Than 3 Seconds Blood Pressure Mean: 132 Progress Note #1: Progress Note UA shows blood but no infection. Bedside test was negative. With pt tachycardic and reporting large blood loss will check basic labs and give IVF bolus of 1 L NS. Check Quant HCG as well to confirm the urine HCG. Likely will try Progesterone based approach to help stabilize and stop bleeding and have her check with Dr. Huerta in clinic for continued concerns as she may need D&C if not stopping or further workup/eval if continued to have abnormal vaginal bleeding and frequent "miscarriages" like the pt reports of having 5 since September. Progress Note #2: Progress Note labs came back stable for her with negative Quant Hcg, CBC stable with Hgb 14.2, Normal coags. Heart rate improved with fluids. Counseled on results and treatment plan of using Medroxyprogesterone for trying to stop the bleeding. Check with pcp or Dr. Huerta for more concerns this week Departure Impression Primary Impression: Abnormal uterine bleeding (AUB) Disposition: HOME, SELF-CARE Condition: Stable Departure-Patient Inst. Decision time for Depature: 13:23 Referrals: MIGNON DAWKINS APRN (PCP) Primary Care Physician JAYNE HUERTA DO Patient Instructions: Bleeding Between Periods Add. Discharge Instructions: Check with your provider or Dr. Huerta about your heavy bleeding and if not improving they may need to do ultrasound or other testing to see if you need surgical procedure to get the bleeding to stop Continue to drink plenty of fluids and stay well hydrated Your test was negative so it does not appear to be a miscarriage with your heavy bleeding this time. You may need other testing to see why you are having abnormal uterine bleeding and bleeding between your normal menstrual cycles. All discharge instructions reviewed with patient and/or family. Voiced understanding. Scripts Medroxyprogesterone Acetate (Medroxyprogesterone Acetate) 10 Mg Tablet 10 MG PO DAILY for heavy vaginal bleeding for 5 Days, #5 TAB 0 Refills Prov: SID GAYLE MD 08/11/20 Work/School Note: Work Release Form Date Seen in the Emergency Department: Aug 11, 2020 Return to Work: Aug 12, 2020 Restrictions: No Restrictions SID GAYLE MD Aug 11, 2020 12:38
[2020-08-11 12:43] LABS: PROTHROMBIN TIME PATIENT 13.5 SEC (12.2-14.7)
[2020-08-11] MEDS ORDERED: MEDR10TA9 PO (13:05)
[2020-08-11 13:30] VITALS: BP 156/93
== END 2020-08-11 13:30 | disposition home or self-care (01) ==
LOC: EDUNIT# 11:55 → ER FS 11:57
DX: N93.8 Other specified abnormal uterine and vaginal bleeding (principal); F17.210 Nicotine dependence, cigarettes, uncomplicated; F17.290 Nicotine dependence, other tobacco product, uncomplicated
CPT/HCPCS: 36415; 81000; 84702; 84703; 85025; 85610; 85730

== ENCOUNTER 2020-11-18 16:26 | Emergency (ER) | payer MEDICAID, OTHER ==
[~2020-11-18] VITALS: Ht 175.2 cm; Wt 80.7 kg
[~2020-11-18 16:26] MED LIST changes: +MEDR10TA9 PO
[2020-11-18] MEDS ORDERED: LIDOCAINE 1% INJ 20 ML 20 ML VIAL ONE (16:38)
--- NOTE | 2020-11-18 16:55 | NUR ---
Dr Asif repaired an avulsion injury of right index finger tip with 1 suture 5-0 Vicryl and some Surgicel followed by pressure dressing. the injured area was cleansed with Chlorhexidine and Betasept soak. used a 1% Lidocaine block and fingercot tourniquet for brief repair.
[2020-11-18] MEDS ORDERED: LIDOCAINE 1% INJ 20 ML 20 ML VIAL INJ ONE (17:00)
--- NOTE | 2020-11-18 17:11 | ED Upper Extremity ---
General Chief Complaint: Laceration Stated Complaint: RT INDEX FINGER LAC Source: patient Exam Limitations: no limitations History of Present Illness Date Seen by Provider: Nov 18, 2020 Time Seen by Provider: 16:45 Initial Comments Patient is a 35-year-old female who presents to the emergency department today with a chief complaint of laceration to the right index finger. 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 Patient has a crescent-shaped avulsion type injury to the medial aspect of the dorsum of the tip of the right index finger. Patient complains of pain and bleeding. Patient states that her last tetanus shot was less than 5 years ago. Patient has no known drug allergies. Patient denies any other complaints of illness or injury. Patient is right-hand dominant. All other review of systems reviewed and negative except as stated above. Onset: just prior to arrival Pain/Injury Location: right 2nd finger Method of Injury: incised Allergies and Home Medications Allergies Coded Allergies: No Known Drug Allergies (Unverified , 03/19/20) Home Medications Dicloxacillin Sodium 500 Mg Capsule, 500 MG PO Q6H Prescribed by: JOSE PENA on 11/18/20 1749 Hydrocodone/Acetaminophen 1 Each Tablet, 1 EACH PO Q6H PRN for PAIN-MODERATE (5- 7) Prescribed by: JOSE PENA on 11/18/20 1749 Medroxyprogesterone Acetate 10 Mg Tablet, 10 MG PO DAILY Prescribed by: SID GAYLE on 08/11/20 1305 Patient Home Medication List Home Medication List Reviewed: Yes Review of Systems Constitutional: see HPI EENTM: no symptoms reported Respiratory: no symptoms reported Cardiovascular: no symptoms reported Gastrointestinal: no symptoms reported Genitourinary: no symptoms reported Musculoskeletal: other (Finger injury) Skin: other (Laceration right index finger) Past Ilewycl-Lcks[place]-Muznnf Hx Patient Social History Alcohol Use: Denies Use Smoking Status: Current Everyday Smoker Type Used: Cigarettes, Electronic/Vapor 2nd Hand Smoke Exposure: No Recent Hopitalizations: No Seasonal Allergies Seasonal Allergies: No Past Medical History Surgeries: Yes Section Respiratory: No Cardiac: No Neurological: No Genitourinary: No Gastrointestinal: No Musculoskeletal: No Endocrine: No HEENT: No Cancer: No Psychosocial: No Integumentary: No Physical Exam Vital Signs Vital Signs - First Documented 11/18/20 16:30 Temp 36.6 Pulse 90 Resp 20 B/P (MAP) 142/86 (104) Pulse Ox 99 O2 Delivery Room Air Capillary Refill : Less Than 3 Seconds Height, Weight, BMI Height: '" Weight: lbs. oz. kg; 26.00 BMI Method: General Appearance: WD/WN, mild distress Cardiovascular: regular rate, rhythm Respiratory: no respiratory distress, no accessory muscle use Shoulder: normal inspection, no evidence of injury, normal ROM Elbow/Forearm: normal inspection, no evidence of injury, normal ROM Wrist: Yes normal inspection, Yes no evidence of injury, Yes normal ROM Hand: laceration (Patient has an avulsion of the medial aspect of the tip of the right finger over the dorsum. Patient has essentially amputated the medial distal finger nail down to the bone. Small arterial bleed is noted. ) Neurologic/Tendon: normal sensation, normal motor functions, normal tendon functions, responds to pain Neurologic/Psychiatric: no motor/sensory deficits, alert, normal mood/affect, oriented x 3 Skin: normal color, warm/dry Procedures/Interventions Suture Size: 5-0 Progress/Results/Core Measures Results/Orders My Orders Orders - JOSE PENA MD Lidocaine 1% Inj 20 Ml (Xylocaine 1% Inj (11/18/20 16:38) Lidocaine 1% Inj 20 Ml (Xylocaine 1% Inj (11/18/20 17:00) Hand 2 View Right (11/18/20 17:14) Hydrocodone/Apap 5/325 Tablet (Lortab 5 (11/18/20 18:15) Hydrocodone/Apap 5/325 Tablet (Lortab 5 (11/18/20 18:01) Medications Given in ED Current Medications Medications Dose Ordered Sig/Oscar Route Start Time Stop Time Status Last Admin Dose Admin Acetaminophen/ Hydrocodone Bitart 1 tab ONCE ONCE PO 11/18/20 18:15 11/18/20 18:16 DC 11/18/20 18:08 1 TAB Lidocaine HCl 20 ml ONCE ONCE INJ 11/18/20 17:00 11/18/20 17:01 DC 11/18/20 16:52 20 ML Vital Signs/I&O 11/18/20 16:30 Temp 36.6 Pulse 90 Resp 20 B/P (MAP) 142/86 (104) Pulse Ox 99 O2 Delivery Room Air Progress Progress Note : Time: 17:09 Progress Note 35-year-old female presents to the emergency department with a chief complaint of avulsion injury to the tip of the right index finger. Obvious bony prominence of the tip of the distal phalanx is visible in the wound. Majority of the patient's finger nail has been avulsed with the fingertip. Patient was using a food mixer repairer as stated in the HPI when she sliced off the medial distal tip of her right index finger. Finger tourniquet was used to control bleeding. She underwent digital block with 1% lidocaine. Good anesthesia was achieved. 1 small 5-0 Vicryl stitch was placed in the fleshy portion of the medial fingertip to attempt to control a small arterial bleed. Wound was dresse d with Surgicel and gauze dressing. Wound continued to bleed. Monitoring to see if the Surgicel will help control the bleeding. 1746 Patient monitored for approximately 45 minutes with a Surgicel dressing in place. Bleeding is controlled. She is redressed with a clean dry gauze dressing. She is given wound care instructions including not to remove the dressing until she is either followed up with occupational health or with Dr. Adams's office. She verbalizes understanding. Patient will be placed on dicloxacillin. She did have a small tuft fracture as a result of this injury to the distal phalanx of the right index finger. She will be on these antibiotics for 10 days. I am also going to give her a prescription for some pain medications as I am sure that this wound will be quite painful once the digital block wears off. All questions are sought and answered patient is stable for discharge at this time 1826 Patient was being discharged and her dressing quickly became saturated with blood. Patient was brought back to the room and another Vicryl stitch was placed. This helped to control some of the bleeding. I did reanesthetize her finger with a second digital block as she was having some intense pain. I am going to use some silver nitrate sticks to try and further achieve hemostasis. Departure Impression Primary Impression: Avulsion of fingertip Qualified Codes: S61.209A - Unspecified open wound of unspecified finger without damage to nail, initial encounter Disposition: 01 HOME, SELF-CARE Condition: Stable Departure-Patient Inst. Decision time for Depature: 17:47 Referrals: YANN ADAMS MD, ANNA K APRN (PCP) Primary Care Physician Patient Instructions: Wound Care (DC), Amputation of the Finger or Fingertip (DC) Add. Discharge Instructions: Please call Dr. Adams's office tomorrow for a follow-up appointment for wound care to help ensure that this injury heals appropriately. Please also follow-up with occupational health. Take the pain medications I have prescribed as needed for severe pain. Alternate with [id number]-[id number] ibuprofen 3 tablets which is 600 mg every 6 hours with food for pain. Keep the dressing in place until you follow-up with Dr. Adams. Take the antibiotics I have prescribed as directed until they are finished. Return to the emergency room for any increase pain, bleeding, redness up the finger and into the hand or any other emergent concerning symptoms. Scripts Hydrocodone/Acetaminophen (Hydrocodone-Acetamin 5-325 mg) 1 Each Tablet 1 EACH PO Q6H PRN for PAIN-MODERATE (5-7), #12 TAB Prov: JOSE PENA MD 11/18/20 Dicloxacillin Sodium (Dicloxacillin Sodium) 500 Mg Capsule 500 MG PO Q6H for 10 Days, #40 CAP Prov: JOSE PENA MD 11/18/20 JOSE PENA MD Nov 18, 2020 17:11
--- NOTE | 2020-11-18 17:27 | Diagnostic Imaging Report ---
INDICATION: Index finger injury AP and lateral views of the right hand reveal partial amputation of the soft tissues at the tip of index finger. There is also avulsion of the tip of terminal tuft. No extension of fracture line into the shaft or interphalangeal joint is identified. No other fracture is seen. There is no evidence of radiopaque foreign body apart from overlying bandaging. IMPRESSION: 1. Terminal tuft amputation of index finger without more proximal fracture or joint involvement. Dictated by: Dictated on workstation # [id number]
[2020-11-18] MEDS ORDERED: DICL500C PO (17:49)
[2020-11-18] MEDS ORDERED: ACHD5005 PO (17:49)
--- NOTE | 2020-11-18 17:55 | NUR ---
Pt being departed at this time to registration window and patient lowered R arm to sign depart consent and immediate saturation of dressing with blood noted. Apparently has strong pulsation felt in hand and pulsation of blood. Pressure applied and Dr Asif notified. Pt returned to ED 3 for reassessment.
[2020-11-18] MEDS ORDERED: HYDROcodone/APAP 5 MG/325 MG (LORTAB) TAB ONE (18:01)
[2020-11-18] MEDS ORDERED: HYDROcodone/APAP 5 MG/325 MG (LORTAB) TAB PO ONE (18:15)
[2020-11-18 18:50] VITALS: BP 144/88
--- NOTE | 2020-11-18 18:50 | NUR ---
Patient discharged at this time after Silver Nitrate sticks utilized to cauterize the area of bleed. re-performed the digital block. Hemostasis achieved and Dr Asif re-dressed a pressure dsg to R index finger. Pt has copy of Work Comp Discharge Instructions and ER discharge instructions. VSS.
== END 2020-11-18 18:50 | disposition home or self-care (01) ==
LOC: EDUNIT# 16:26 → ER FS 16:27
DX: S61.210A Laceration without foreign body of right index finger without damage to nail, initial encounter (principal); F17.210 Nicotine dependence, cigarettes, uncomplicated; F17.290 Nicotine dependence, other tobacco product, uncomplicated; W23.1XXA Caught, crushed, jammed, or pinched between stationary objects, initial encounter
CPT/HCPCS: 12001; 64450; 73120

== ENCOUNTER → 2020-11-25 | Outpatient (CLI) | payer OTHER ==
[~2020-11-25] MED LIST changes: +ACHD5005 PO; +DICL500C PO
== END ==
LOC: WOUNDCARE 08:48
PROVIDERS: ATTEND Surgery
DX: S61.300A Unspecified open wound of right index finger with damage to nail, initial encounter (principal); T65.222A Toxic effect of tobacco cigarettes, intentional self-harm, initial encounter; I96 Gangrene, not elsewhere classified; F17.218 Nicotine dependence, cigarettes, with other nicotine-induced disorders
CPT/HCPCS: A6260; G0463; 99213

== ENCOUNTER → 2020-12-03 | Outpatient (CLI) | payer OTHER | LOC: WOUNDCARE 11:02 | PROVIDERS: ATTEND Surgery | DX: S61.300A Unspecified open wound of right index finger with damage to nail, initial encounter (principal); I96 Gangrene, not elsewhere classified; T65.222A Toxic effect of tobacco cigarettes, intentional self-harm, initial encounter; F17.218 Nicotine dependence, cigarettes, with other nicotine-induced disorders | CPT/HCPCS: 11042; G0463 ==

== ENCOUNTER → 2020-12-10 | Outpatient (CLI) | payer OTHER | LOC: WOUNDCARE 08:29 | PROVIDERS: ATTEND Surgery | DX: S61.300A Unspecified open wound of right index finger with damage to nail, initial encounter (principal); T65.222A Toxic effect of tobacco cigarettes, intentional self-harm, initial encounter; F17.218 Nicotine dependence, cigarettes, with other nicotine-induced disorders; I96 Gangrene, not elsewhere classified | CPT/HCPCS: 11042; G0463 ==

== ENCOUNTER → 2020-12-17 | Outpatient (CLI) | payer OTHER | LOC: WOUNDCARE 08:18 | PROVIDERS: ATTEND Surgery | DX: S61.200A Unspecified open wound of right index finger without damage to nail, initial encounter (principal); I96 Gangrene, not elsewhere classified; T65.222A Toxic effect of tobacco cigarettes, intentional self-harm, initial encounter; F17.218 Nicotine dependence, cigarettes, with other nicotine-induced disorders | CPT/HCPCS: 99213 ==

== ENCOUNTER → 2020-12-24 | Outpatient (CLI) | payer OTHER | LOC: WOUNDCARE 08:23 | PROVIDERS: ATTEND Surgery | DX: S61.200A Unspecified open wound of right index finger without damage to nail, initial encounter (principal); T65.222A Toxic effect of tobacco cigarettes, intentional self-harm, initial encounter; F17.218 Nicotine dependence, cigarettes, with other nicotine-induced disorders | CPT/HCPCS: 99212 ==

== ENCOUNTER → 2021-12-29 | Outpatient (CLI) | payer MEDICARE, OTHER ==
--- NOTE | 2021-12-29 15:34 | Diagnostic Imaging Report ---
INDICATION: Left flank pain EXAM: Lumbar spine FINDINGS: AP and lateral views of the lumbar spine shows disc space narrowing at L5-S1. The other intervertebral disc spaces are normal. Alignment is normal. There are no compression fractures. IMPRESSION: Moderate degenerative disc changes at L5-S1. Dictated by: Dictated on workstation # [id number]
== END ==
LOC: RAD FS 14:59
PROVIDERS: ATTEND Nurse Practitioner Family
DX: M47.817 Spondylosis without myelopathy or radiculopathy, lumbosacral region (principal)
CPT/HCPCS: 72100

== ENCOUNTER 2022-01-07 17:37 | Emergency (ER) | payer OTHER ==
[~2022-01-07] VITALS: Ht 175 cm; Wt 90.0 kg
[2022-01-07 17:45] VITALS: BP 113/86
--- NOTE | 2022-01-07 18:13 | ED Lower Extremity ---
General Chief Complaint: Laceration Stated Complaint: L FOOT LAC Nursing Triage Note: Patient accidently stepped on a nail turkmen bottle and cut her foot. Source: patient Exam Limitations: no limitations History of Present Illness Date Seen by Provider: Jan 07, 2022 Time Seen by Provider: 17:44 Initial Comments 36-year-old female with no significant past medical history coming in after she stepped on her nail turkmen container cutting her left foot just prior to arrival. Having constant sharp throbbing pain in her left foot which is better when she is not putting weight on it. She cleaned it and put some pressure on it before coming in. Tetanus updated 2 years ago. Allergies and Home Medications Allergies Coded Allergies: No Known Drug Allergies (Unverified , 03/19/20) Patient Home Medication List Home Medication List Reviewed: Yes Dicloxacillin Sodium (Dicloxacillin Sodium) 500 Mg Capsule, 500 MG PO Q6H Prescribed by: JOSE PENA on 11/18/20 1749 Hydrocodone/Acetaminophen (Hydrocodone-Acetamin 5-325 mg) 1 Each Tablet, 1 EACH PO Q6H PRN for PAIN-MODERATE (5-7) Prescribed by: JOSE PENA on 11/18/20 1749 Medroxyprogesterone Acetate (Medroxyprogesterone Acetate) 10 Mg Tablet, 10 MG PO DAILY Prescribed by: SID GAYLE on 08/11/20 1305 Review of Systems Constitutional: No chills EENTM: no symptoms reported Respiratory: no symptoms reported Cardiovascular: no symptoms reported Gastrointestinal: no symptoms reported Genitourinary: no symptoms reported Musculoskeletal: no symptoms reported Skin: other (Laceration) Psychiatric/Neurological: No Symptoms Reported All Other Systems Reviewed Negative Unless Noted: Yes Past Atsjzie-Wwvqry-Smhglp Hx Patient Social History Tobacco Use?: Yes Tobacco type used: Cigarettes Smoking Status: Current Everyday Smoker Use of E-Cig and/or Vaping dev: No Substance use?: No Alcohol Use?: No Pt feels they are or have been: Unable to obtain Seasonal Allergies Seasonal Allergies: No Past Medical History Surgeries: Yes Section Respiratory: No Cardiac: No Neurological: No Genitourinary: No Gastrointestinal: No Musculoskeletal: No Endocrine: No HEENT: No Cancer: No Psychosocial: No Integumentary: No Physical Exam Vital Signs Vital Signs - First Documented 01/07/22 17:45 Pulse 80 Resp 16 B/P (MAP) 113/86 (95) Pulse Ox 97 O2 Delivery Room Air Capillary Refill : Height, Weight, BMI Height: '" Weight: lbs. oz. kg; 29.00 BMI Method: General Appearance: WD/WN, no apparent distress HEENT: PERRL/EOMI, normal ENT inspection, pharynx normal Neck: non-tender, full range of motion, supple, normal inspection Cardiovascular: regular rate, rhythm, no edema, no murmur Respiratory: chest non-tender, lungs clear, normal breath sounds, no respiratory distress, no accessory muscle use Gastrointestinal: normal bowel sounds, non tender, soft; No distended, No guarding Back: normal inspection, no CVA tenderness Hips: bilateral hip non-tender, bilateral hip normal inspection, bilateral hip normal range of motion, bilateral hip no evidence of injury Legs: bilateral leg non-tender, bilateral leg normal inspection, bilateral leg normal range of motion, bilateral leg no evidence of injury Knees: bilateral knee non-tender, bilateral knee normal inspection, bilateral knee normal range of motion, bilateral knee no evidence of injury Ankles: bilateral ankle non-tender, bilateral ankle normal inspection, bilateral ankle normal range of motion, bilateral ankle no evidence of injury Feet: right foot non-tender; left foot normal range of motion; right foot no evidence of injury; left foot abrasions/lacerations (3 cm laceration to the left lateral pad of the foot) Neurologic/Tendon: normal sensation, normal motor functions Neurologic/Psychiatric: no motor/sensory deficits, alert, normal mood/affect Skin: normal color, warm/dry Lymphatic: no adenopathy Procedures/Interventions Wound Location: Lower Extremities (left foot) Wound Length (cm): 3 Wound's Depth, Shape: superficial Wound Explored: clean Irrigated w/ Saline (ccs): 500 Anesthesia: Lidocaine w/ Epi Volume Anesthetic (ccs): 3 Suture: Plain Suture Size: 4-0, 5-0 Other Closure Supply: Steri Strip /" Number of Sutures: 6 Sterile Dressing Applied?: Yes Progress Tolerated the procedure well, hemostatic afterwards Progress/Results/Core Measures Results/Orders Vital Signs/I&O 01/07/22 17:45 Pulse 80 Resp 16 B/P (MAP) 113/86 (95) Pulse Ox 97 O2 Delivery Room Air Blood Pressure Mean: 95 Progress Progress Note : Progress Note Came in for left foot laceration. Tetanus updated already. ABCs and vitals stable. I visualize the entirety of the depth of the wound with no foreign body. It was cleaned, numbed, and closed. She can come back to get her sutures out in 7 days or go to any other doctor. Departure Impression Primary Impression: Foot laceration Qualified Codes: S91.312A - Laceration without foreign body, left foot, initial encounter Disposition: HOME, SELF-CARE Condition: Stable Departure-Patient Inst. Decision time for Depature: 18:12 Referrals: MIGNON DAWKINS APRN (PCP) Primary Care Physician [facility] (Family) Primary Care Physician Patient Instructions: Laceration Repair With Stitches ED Add. Discharge Instructions: He can come back to the ER in 7 days or have any doctor take them out for the stitches. He should not have any redness in your skin spreading up your leg or pus coming out of the wound, these would be signs of infection and I would want you to be seen sooner. Do not get the wound wet. You go back to work on Wednesday. Take ibuprofen 600 mg every 6 hours as needed for pain. Work/School Note: Work Release Form Date Seen in the Emergency Department: Jan 07, 2022 Return to Work: Jan 12, 2022 Restrictions: No Restrictions JUAN FRANCISCO RAMAN MD Jan 07, 2022 18:12
== END 2022-01-07 18:25 | disposition home or self-care (01) ==
LOC: ER FS 17:37 → EDUNIT# 17:37 → ER FS 18:25
DX: S91.312A Laceration without foreign body, left foot, initial encounter (principal); F17.210 Nicotine dependence, cigarettes, uncomplicated; W26.8XXA Contact with other sharp object(s), not elsewhere classified, initial encounter
CPT/HCPCS: 99281

== ENCOUNTER 2022-01-13 12:52 | Emergency (ER) | payer OTHER ==
[~2022-01-13] VITALS: Ht 175.2 cm; Wt 91.0 kg
[2022-01-13 12:56] VITALS: BP 132/79
== END 2022-01-13 13:18 | disposition home or self-care (01) ==
LOC: EDUNIT# 12:52 → ER FS 12:53
DX: Z48.02 Encounter for removal of sutures (principal)

== ENCOUNTER 2022-10-18 21:51 | Emergency (ER) | payer OTHER ==
--- NOTE | 2022-10-18 22:15 | ED Fall/Injury ---
General Chief Complaint: General Problems/Pain Stated Complaint: RT SIDE PAIN/BRUISING Nursing Triage Note: Pt states she fell 2 days ago off of a chair and hit her right side on the kitchen counter. Pt states her right breast was bruised but that today the bruise is worse and she was concerned about it Source: patient History of Present Illness Date Seen by Provider: Oct 18, 2022 Time Seen by Provider: 21:53 Initial Comments 37 yo female presents with complaint of increasing bruising to right breast and concern for blood clot. She had been climbing up on a chair to try and get some thing from an upper cabinet 2 nights ago. The chair collapsed under her and she had fallen against the counter. She denies hitting her head but had fallen onto the floor and thinks the pain made her pass out for a few seconds. She felt the bruises were improving but the one on her right breast seemed to be worse after she took a shower tonight. She does take NSAIDS for her degenerative joint disease. She denies taking aspirin or blood thinners otherwise. She has had no nausea, vomiting, chest pain, shortness of breath. She just came off of her menstrual cycle. Occurred: other (Wednesday night 10/16) Severity: moderate Injuries/Pain Location: upper extremity, chest (right breast) Context: other (chair collapsed under her and hit against counter) Loss of Consciousness: brief (seconds) Modifying Factors: Worse With Movement Associated Symptoms (Fall): No Abdominal Pain, No Chest Pain, No Confusion, No Dizziness, No Headache, No Lightheadedness, No Muscle Spasms, No Nausea/Vomiting, No Neck Pain, No Ringing in Ears, No Seizures, No Shortness of Air, No Slurred Speech, No Trouble Walking, No Vision Changes Allergies and Home Medications Allergies Coded Allergies: No Known Drug Allergies (Unverified , 03/19/20) Patient Home Medication List Home Medication List Reviewed: Yes Dicloxacillin Sodium (Dicloxacillin Sodium) 500 Mg Capsule, 500 MG PO Q6H Prescribed by: JOSE PENA on 11/18/201748 Hydrocodone/Acetaminophen (Hydrocodone-Acetamin 5-325 mg) 1 Each Tablet, 1 EACH PO Q6H PRN for PAIN-MODERATE (5-7) Prescribed by: JOSE PENA on 1/25/21 1749 Medroxyprogesterone Acetate (Medroxyprogesterone Acetate) 10 Mg Tablet, 10 MG PO DAILY Prescribed by: SID GAYLE on 08/11/20 1305 Review of Systems Review of Systems Constitutional: No chills, No dizziness, No fever Eyes: Denies Blurred Vision, Denies Photophobia Ears, Nose, Mouth, Throat: denies ear pain, denies ear discharge, denies nose pain, denies nose discharge, denies epistaxis Respiratory: No cough, No short of breath Cardiovascular: No chest pain Gastrointestinal: No nausea, No vomiting Genitourinary: No dysuria : No Musculoskeletal: see HPI (mild tenderness to areas of bruising on arms and right breast) Skin: see HPI, change in color (bruising to bilateral arms around elbows and upper arms and right lateral breast) Psychiatric/Neurological: Anxiety Past Lnpgjlw-Zhkfhg-Dkatya Hx Patient Social History Tobacco Use?: No Use of E-Cig and/or Vaping dev: No Substance use?: No Alcohol Use?: No Pt feels they are or have been: No Seasonal Allergies Seasonal Allergies: No Past Medical History Surgery/Hospitalization HX: High blood pressure, Degenerative joint disease Surgeries: Yes Section Respiratory: No Cardiac: No Neurological: No Genitourinary: No Gastrointestinal: No Musculoskeletal: No Endocrine: No HEENT: No Cancer: No Psychosocial: No Integumentary: No Physical Exam Vital Signs Vital Signs - First Documented 10/18/22 21:54 Temp 36.3 Pulse 73 Resp 18 B/P (MAP) 124/75 (91) Pulse Ox 99 O2 Delivery Room Air Capillary Refill : Less Than 3 Seconds Height, Weight, BMI Height: '" Weight: lbs. oz. 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, no motor/sensory deficits, al ert, normal mood/affect, oriented x 3 Skin: warm/dry, ecchymosis (bruises noted to bilateral arms around elbows and upper arms and right lateral breast) Wheaton Coma Score Best Eye Response: (4) Open Spontaneously Best Verbal Response: (5) Oriented Best Motor Response: (6) Obeys Commands Lisandra Total: 15 Procedures/Interventions Suture Size: 4-0, 5-0 Progress/Results/Core Measures Results/Orders Lab Results Laboratory Tests Test 10/18/22 22:15 Range/Units White Blood Count 6.6 4.3-11.0 10^3/uL Red Blood Count 3.80 3.80-5.11 10^6/uL Hemoglobin 11.0 L 11.5-16.0 g/dL Hematocrit 32 L 35-52 % Mean Corpuscular Volume 85 80-99 fL Mean Corpuscular Hemoglobin 29 25-34 pg Mean Corpuscular Hemoglobin Concent 34 32-36 g/dL Red Cell Distribution Width 12.7 10.0-14.5 % Platelet Count 219 130-400 10^3/uL Mean Platelet Volume 10.9 9.0-12.2 fL Immature Granulocyte % (Auto) 0 % Neutrophils (%) (Auto) 51 42-75 % Lymphocytes (%) (Auto) 39 12-44 % Monocytes (%) (Auto) 7 0-12 % Eosinophils (%) (Auto) 2 0-10 % Basophils (%) (Auto) 1 0-10 % Neutrophils # (Auto) 3.4 1.8-7.8 10^3/uL Lymphocytes # (Auto) 2.6 1.0-4.0 10^3/uL Monocytes # (Auto) 0.5 0.0-1.0 10^3/uL Eosinophils # (Auto) 0.1 0.0-0.3 10^3/uL Basophils # (Auto) 0.0 0.0-0.1 10^3/uL Immature Granulocyte # (Auto) 0.0 0.0-0.1 10^3/uL Prothrombin Time 12.8 12.2-14.7 SEC INR Comment 0.9 0.8-1.4 Activated Partial Thromboplast Time 27 24-35 SEC My Orders Orders - SID GAYLE MD Ice: Apply To Affected Area (10/18/22 22:08) Cbc With Automated Diff (10/18/22 22:08) Protime With Inr (10/18/22 22:08) Partial Thromboplastin Time (10/18/22 22:08) Vital Signs/I&O 10/18/22 10/18/22 21:54 22:35 Temp 36.3 36.3 Pulse 73 73 Resp 18 18 B/P (MAP) 124/75 (91) 124/75 Pulse Ox 99 99 O2 Delivery Room Air Room Air Blood Pressure Mean: 91 Progress Progress Note #1: Progress Note Significant other voiced concerns for blood clot due to the bruising getting worse. He states he had his first that had a bruise and did not think anything of it but it was a blood clot and killed her. He wanted Cinda to get checked when he saw the bruising seemed to be getting worse to right breast after shower tonight. Will check basic CBC and PT/INR with PTT to look for coagu lopathy or anemia or thrombocytopenia. She does not have induration or firmness to bruises on arms or lateral breast to indicate a deeper clot thant he superficial bruising. Counseled that with increased vascularity of the breast it is easy to bruise and can take several days to reach maximum effect of the bruise before it starts to get better. Apply ice and elevate chest/HOB to help with bruising and swelling while waiting on labs. advised if not improving she could follow up with clinic and they could get ultrasound with the [facility] clinic to look for anything deeper than superficial bruising. Progress Note #2: Time: 22:29 Progress Note CBC shows mild anemia with Hgb 11. Last lab from 2 years ago had Hgb 14. Plat elets normal and not indicating any low numbers to cause her to bleed easier. Counseled to use ice and elevation to help with bruising and that it may still get a little worse in next 2-3 days before it starts to get better and can take weeks to completely heal. Check with clinic if seems to be worsening instead of improving as they may order ultrasound if that happens. Progress Note #3: Time: 22:34 Progress Note Coags are normal as well so again reassured pt and significant other. Counseled on follow up and return precautions. Departure Impression Primary Impression: Traumatic ecchymosis of right female breast Qualified Codes: S20.01XA - Contusion of right breast, initial encounter Additional Impressions: Traumatic ecchymosis of multiple sites of right upper extremity and shoulder Qualified Codes: S40.021A - Contusion of right upper arm, initial encounter; S40.011A - Contusion of right shoulder, initial encounter Traumatic ecchymosis of multiple sites of left upper extremity and shoulder Qualified Codes: S40.022A - Contusion of left upper arm, initial encounter; S40.012A - Contusion of left shoulder, initial encounter Fall from chair, initial encounter Fall involving chair as cause of accidental injury in home as place of occurrence Qualified Codes: W07.XXXA - Fall from chair, initial encounter; Y92.009 - Unspecified place in unspecified non-institutional (private) residence as the place of occurrence of the external cause Disposition: 01 HOME, SELF-CARE Condition: Stable Departure-Patient Inst. Decision time for Depature: 22:33 Referrals: MIGNON DAWKINS APRN (PCP) Primary Care Physician [facility] (Family) Primary Care Physician Patient Instructions: Minor Contusion ED, Taking Care of Bruises Add. Discharge Instructions: Apply ice 15-20 minutes every few hours while awake to help with bruising and swelling and pain. Try to sleep with head of bed elevated 30-45 degrees to help with bruising and swelling. This will allow gravity to help decrease bruising If worsening instead of improving check with [facility] clinic and they may need to do ultrasound to look for any deeper bruise/clot than what is seen in the arms and breast. All discharge instructions reviewed with patient and/or family. Voiced understanding. SID GAYLE MD Oct 18, 2022 22:15
[2022-10-18 22:19] LABS: BASOPHILS % (AUTO) 1 % (0-10); EOSINOPHILS # (AUTO) 0.1 10^3/uL (0.0-0.3); EOSINOPHILS % (AUTO) 2 % (0-10); HEMATOCRIT 32 % (35-52); LYMPHOCYTES # (AUTO) 2.6 10^3/uL (1.0-4.0); LYMPHOCYTES % (AUTO) 39 % (12-44); MEAN CORPUSCULAR HEMOGLOBIN 29 pg (25-34); MEAN CORPUSCULAR HGB CONC 34 g/dL (32-36); MEAN CORPUSCULAR VOLUME 85 fL (80-99); MEAN PLATELET VOLUME 10.9 fL (9.0-12.2); MONOCYTES # (AUTO) 0.5 10^3/uL (0.0-1.0); MONOCYTES % (AUTO) 7 % (0-12); NEUTROPHILS # (AUTO) 3.4 10^3/uL (1.8-7.8); NEUTROPHILS % (AUTO) 51 % (42-75); PLATELET COUNT 219 10^3/uL (130-400); WHITE BLOOD COUNT 6.6 10^3/uL (4.3-11.0)
[2022-10-18 22:30] LABS: INR 0.9 (0.8-1.4); PROTHROMBIN TIME PATIENT 12.8 SEC (12.2-14.7)
[2022-10-18 22:35] VITALS: BP 124/75
== END 2022-10-18 22:41 | disposition home or self-care (01) ==
LOC: EDUNIT# 21:51 → ER FS 21:53
DX: S20.01XA Contusion of right breast, initial encounter (principal); S50.02XA Contusion of left elbow, initial encounter; S50.01XA Contusion of right elbow, initial encounter; S40.022A Contusion of left upper arm, initial encounter; S40.021A Contusion of right upper arm, initial encounter; D64.9 Anemia, unspecified; Z28.310 Unvaccinated for COVID-19; W07.XXXA Fall from chair, initial encounter; W22.8XXA Striking against or struck by other objects, initial encounter; Y92.009 Unspecified place in unspecified non-institutional (private) residence as the place of occurrence of the external cause
CPT/HCPCS: 36415; 85025; 85610; 85730

== ENCOUNTER 2023-04-22 05:34 | Outpatient (CLI) | payer MEDICAID ==
[~2023-04-22] VITALS: Ht 175.3 cm; Wt 91.6 kg
[2023-04-22] MEDS ORDERED: FAMO20TA3 PO (12:20)
[2023-04-22] MEDS ORDERED: PANT40TA52 PO (12:20)
[2023-04-22] MEDS ORDERED: LISI10TA25 PO (12:20)
[2023-04-22] MEDS ORDERED: FLAX10004 PO (12:20)
[2023-04-22] MEDS ORDERED: NAPR-1088 PO (12:20)
== END 2023-04-22 12:22 | disposition home or self-care (01) ==
LOC: PREOP 05:34
PROVIDERS: ATTEND Surgery
DX: Z01.818 Encounter for other preprocedural examination (principal)

== ENCOUNTER 2023-05-03 08:37 | Day surgery (SDC) | payer MEDICAID ==
[~2023-05-03] VITALS: Ht 175.3 cm; Wt 91.6 kg
[~2023-05-03 08:37] MED LIST changes: +FAMO20TA3 PO; +FLAX10004 PO; +LISI10TA25 PO; +NAPR-1088 PO; +PANT40TA52 PO
--- NOTE | 2023-05-03 08:50 | Progress Note-Pre Operative ---
Pre-Operative Progress Note Date of Available H&P: Apr 20, 2023 Date H&P Reviewed: May 03, 2023 Time H&P Reviewed: 08:46 History & Physical: H&P Reviewed, Patient Examed, No changes noted Pre-Operative Diagnosis: PERLITA SALAZAR DO May 03, 2023 08:50
[2023-05-03] MEDS ORDERED: LACTATED RINGERS 1,000 ML IV STA (09:04)
[2023-05-03] MEDS ORDERED: HURRICAINE EXT TUBE (BENZOCAINE) XX PRN (09:15)
[2023-05-03 09:18] VITALS: BP 130/82
[2023-05-03] MEDS ORDERED: PROPOFOL INJECTION 50 ML IV ONE (10:29)
--- NOTE | 2023-05-03 10:42 | Anesthesia-General Post-Op ---
MAC Patient Condition Mental Status/LOC: Same as Preop Cardiovascular: Satisfactory Nausea/Vomiting: Absent Respiratory: Satisfactory Pain: Controlled Complications: Absent Post Op Complications Complications None Follow Up Care/Instructions Patient Instructions None needed. Anesthesiology Discharge Order Discharge Order Patient is doing well, no complaints, stable vital signs, no apparent adverse anesthesia problems. No complications reported per nursing. DANIELLA BROWNLEE CRNA May 03, 2023 10:42
--- NOTE | 2023-05-03 10:42 | Progress Note-Post Operative ---
Post-Operative Progess Note Surgeon (s)/Power Supply Engineer (s) Surgeon PERLITA CAMPOS DO Power Supply Engineer: none Pre-Operative Diagnosis GERD Post-Operative Diagnosis Gastritis Hiatal hernia Procedure & Operative Findings Date of Procedure 05/03/23 Procedure Performed/Findings EGD with biopsy PROCEDURE NOTE: After informed consent was obtained, the patient was brought to the endoscopy suite, placed in bed in left lateral decubitus position. She was administered IV sedation by the SENIOR WEB ARCHITECT who then monitored vitals the entire time, heart rate, blood pressure and pulse ox and the scope was inserted down the mouth through the esophagus into the stomach. On the way down, noted some mild esophagitis, took a picture, pushed into the stomach, pushed past the antrum into the duodenum. Duodenum looked good. Pulled back and did a biopsy of antrum, then retroflexed the scope, saw small grade II AFS hiatal hernia, took a picture of this and then pulled the scope into the GE junction and then did a biopsy of the GE junction. Pushed the scope back into the stomach, suctioned all the air out of the stomach. At this point pulled the scope up the esophagus and out the mouth. The patient tolerated the procedure, and she recovered in endoscopy suite. Anesthesia Type IV sedation by SENIOR WEB ARCHITECT Estimated Blood Loss Estimated blood loss (mL): scant Specimens/Packing Specimens Removed antral bx GE jxn bx PERLITA CAMPOS DO May 03, 2023 10:42
--- NOTE | 2023-05-03 10:43 | Endoscopy Discharge Instruct ---
Endo Procedure/Findings Findings 1.: Gastritis 2.: Hiatal Hernia Discharge Instructions - Activity: You might feel a little sleepy until tomorrow. This is due to the medicine you received to relax you. Until tomorrow, you should: NOT drive a car, operate machinery or power tools. NOT drink any alcoholic beverages. NOT make any important decisions or sign importortant papers. Do not return to work until tomorrow, unless otherwise instructed. Resume previous activities tomorrow. Diet: Start by taking liquids. If you tolerate liquids, advance to solid food. 1.: EGD in 3 years Notify Physician - If you experience excessive bleeding, unusual abdominal pain, fever, or chest pain, contact your doctor immediately. Follow-Up: Other Follow up in my office in one week PERLITA CAMPOS DO May 03, 2023 10:43
[2023-05-03 10:50] VITALS: BP 111/71
[2023-05-03 10:55] VITALS: BP_SYST 108; BP_SYST 114; BP_DIAS 72; BP_DIAS 73
[2023-05-03 11:22] VITALS: BP 108/72
== END 2023-05-03 11:22 | disposition home or self-care (01) ==
LOC: ENDO 08:37
PROVIDERS: ATTEND Surgery
DX: K29.50 Unspecified chronic gastritis without bleeding (principal); K21.00 Gastro-esophageal reflux disease with esophagitis, without bleeding; K44.9 Diaphragmatic hernia without obstruction or gangrene; K31.89 Other diseases of stomach and duodenum; F17.210 Nicotine dependence, cigarettes, uncomplicated; Z79.899 Other long term (current) drug therapy
CPT/HCPCS: 84703

== ENCOUNTER 2023-09-08 06:11 | Outpatient (CLI) | payer MEDICAID ==
[~2023-09-08] VITALS: Ht 175.3 cm; Wt 96.2 kg
[~2023-09-08 06:11] MED LIST changes: +FAMO-356 PO; -FAMO20TA3 PO
[2023-09-08] MEDS ORDERED: SUCR100P MC (09:16)
[2023-09-08] MEDS ORDERED: ACET-168 PO (09:16)
== END 2023-09-08 09:36 | disposition home or self-care (01) ==
LOC: PREOP 06:11
PROVIDERS: ATTEND Surgery
DX: Z01.818 Encounter for other preprocedural examination (principal)

== ENCOUNTER 2023-09-15 08:57 | Day surgery (SDC) | payer MEDICAID ==
[2023-09-15] VITALS (14 sets, daily range): BP systolic 110–137; BP diastolic 67–88
[~2023-09-15] VITALS: Ht 175.3 cm; Wt 96.2 kg
[~2023-09-15 08:57] MED LIST changes: +ACET-168 PO; +SUCR100P MC
[2023-09-15] MEDS ORDERED: ceFAZolin INJECTION 2,000 MG ONE (09:14)
[2023-09-15] MEDS ORDERED: NS (IVPB) 50 ML 50 ML ONE (09:14)
[2023-09-15] MEDS ORDERED: ceFAZolin INJECTION 2,000 MG in NS (IVPB) 50 ML 50 ML IV ONE (09:15)
--- NOTE | 2023-09-15 09:31 | Progress Note-Pre Operative ---
Pre-Operative Progress Note Date of Available H&P: Aug 31, 2023 Date H&P Reviewed: Sep 15, 2023 Time H&P Reviewed: 09:29 History & Physical: H&P Reviewed, Patient Examed, No changes noted Pre-Operative Diagnosis: Chlolelithiasis/cholecystitis PERLITA CAMPOS DO Sep 15, 2023 09:31
[2023-09-15] MEDS: LACTATED RINGERS 1,000 ML 1,000 ML IV PRN ×2 (09:34→12:14)
[2023-09-15] MEDS ORDERED: LIDOCAINE 2% w/EPI 1:100,000 20 ML VIAL ONE (09:43)
[2023-09-15] MEDS ORDERED: proPOfol INJECTION 200 MG/20 ML VIAL IV ONE (09:47)
[2023-09-15] MEDS ORDERED: ROCURONIUM 50 MG/5 ML VIAL IV ONE (09:47)
[2023-09-15] MEDS ORDERED: LIDOCAINE PF 2% 5 ML VIAL ONE (09:47)
[2023-09-15] MEDS ORDERED: fentaNYL INJECTION 100 MCG/2 ML VIAL ONE (09:47)
[2023-09-15] MEDS ORDERED: dexAMETHasone INJ 10 MG/ML 1 ML VIAL ONE (09:47)
[2023-09-15] MEDS ORDERED: SEVOFLURANE (ULTANE) 15 ML INHAL SOLN ONE ×2 (09:47→12:49)
[2023-09-15] MEDS ORDERED: ONDANSETRON INJECTION 4 MG/2 ML (SDV) ONE ×2 (09:47→13:55)
[2023-09-15] MEDS ORDERED: MIDAZOLAM INJ 2 MG/2 ML VIAL ONE (09:47)
[2023-09-15] MEDS ORDERED: LIDOCAINE 2% w/EPI 1:100,000 20 ML VIAL INJ ONE (09:53)
[2023-09-15] MEDS ORDERED: IOHEXOL 300 MG/ML 30 ML (OMNIPAQUE 300) VIAL INJ ONE (09:54)
[2023-09-15] MEDS ORDERED: GLYCOPYRROLATE INJ 0.2 MG/ML 2 ML VIAL ONE (12:40)
[2023-09-15] MEDS ORDERED: KETOROLAC INJ 30 MG/ML VIAL ONE (12:40)
[2023-09-15] MEDS ORDERED: NEOSTIGMINE 1 MG/1ML 10 ML VIAL ONE (12:40)
--- NOTE | 2023-09-15 12:57 | Progress Note-Post Operative ---
Post-Operative Progess Note Surgeon (s)/Vp Analysis (s) Surgeon PERLITA CAMPOS DO Vp Analysis: Huyen Pre-Operative Diagnosis Chlolelithiasis/cholecystitis Post-Operative Diagnosis Same Procedure & Operative Findings Date of Procedure 09/15/23 Procedure Performed/Findings PROCEDURE: Laparoscopic cholecystectomy with intraoperative cholangiogram. COMPLICATIONS: None. PROCEDURE: The patient was taken to the operating suite and was prepped and draped in sterile fashion. A surgical pause was performed. Just superior to the umbilicus, a 12 mm incision was made. Dissection was taken down to the fascia, which was then scored and grasped with a Aaliyah and the abdomen was then entered. A 0 Vicryl suture was placed in a [id number] fashion and a Benites trocar was placed and secured. Pneumoperitoneum was achieved.A 5mm tro[address] in the subxyphoid and 2 in the right upper quadrant. The gallbladder was then grasped at the fundus and elevated in the superior direction. Adhesions were taking down with blunt dissection and cautery. Dr. Matson then grasped at Santiago's pouch and pulled in the infero-lateral direction. The cystic duct and cystic artery were then dissected out. Clip was placed on the distal portion of the cystic duct which was then partially transected. An arrow catheter was inserted into the duct. The cholangiogram was then performed. No filling defects seen, contrast went down CBD, up common hepatic to right and left hepatic and contrast made its way into the duodenum. Catheter removed. Clips were placed on proximal portion of the cystic duct and then the duct was then transected. Clips were placed along the proximal and distal portion of the cystic artery which was then transected. Hook cautery was used to dissect the gallbladder from the gallbladder fossa achieving hemostasis. The gallbladder was placed in an Endobag and removed through the 12 mm trocar site. The abdomen was then reinspected. Copious amounts of irrigation were used to irrigate the abdomen and there were no signs of active bleeding. Hemostasis had been achieved. The 12 mm fascial defect was then closed with 0 Vicryl suture that had been placed in a [id number] fashion. The abdomen was then desufflated, the trocars were removed. The abdomen was then washed and dried. Dr. Matson then closed the skin using 4-0 Monocryl in a subcuticular fashion. The abdomen was washed and dried and Skin Affix was place over incisions. Patient tolerated the procedure well without any complications and was taken to the recovery room in stable condition. Anesthesia Type GET Estimated Blood Loss Estimated blood loss (mL): scant Specimens/Packing Specimens Removed GB and contents PERLITA CAMPOS DO Sep 15, 2023 12:57
[2023-09-15] MEDS ORDERED: ACHD5005 PO (12:58)
--- NOTE | 2023-09-15 12:59 | Discharge Inst-Surgical ---
Discharge Inst-Surgical Depart Medication/Instructions New, Converted or Re-Newed RX: Transmitted to Pharmacy Patient Instructions Follow up Appt: Make appointment for 1 week. [phone] Instructions: No lifting greater than 20 pounds. No strenuous activity. May shower in 24 hours, no tub bath or soaking. Use incentive spirometer at home as directed. No Smoking Skin/Wound Care: May remove bandages in am. You need to leave the Dermabond on incision it will fall off on it's own. Symptoms to Report: Appetite Changes, Extremity Discoloration, Numbness/Tingling, Swelling Increased, Bleeding Excessive, Eyesight Changes, Pain Increased, Urine Color Change, Constipation(Persistent), Fever over 101 degree F, Pain/Pressure in chest, Urinating Difficulty, Cough Up/Vomit Blood, Heart Beat Irreg/Pounding, Pain/Pressure in jaw, Cramps in feet or legs, Lightheadedness, Pain/Pressure in shoulder, Diarrhea(Persistent), Memory Changes Suddenly, Questions/Concerns, Weight gain consecutive days, Dizziness/Fainting, Nausea/Vomiting, Shortness of Breath, Weight gain over 2 pounds If questions or concerns contact your physician Or seek help at emergency department. Activity Activity as Tolerated: Yes Activity Instructions: Avoid Stress to Incision Driving Instructions: No Driving/Refer to Dr. Mitchell Diet After 24 Hours: Clear Liquid if Nauseous If Any Problems/Questions/Issu: Contact Your Physician, Go to Emergency Room Skin/Wound Care Infection Signs and Symptoms: Increased Redness, Foul Odor of Wound, Increased Drainage, Skin Itchy or Has a Rash, Increased Swelling, Temperature Above 101 F Wound Care Comment: heating pad to shoulder or neck tonight for pain Bathing Instructions: Shower Stitches/Bharati/Dermabond Dis: Dermabond PERLITA CAMPOS DO Sep 15, 2023 12:59
[2023-09-15] MEDS ORDERED: MEPERIDINE INJ 50 MG/ML VIAL ONE (13:13)
[2023-09-15] MEDS ORDERED: morphine INJ 10 MG/ML 1ML (SYR OR VIAL) ONE (13:13)
[2023-09-15] MEDS ORDERED: MEPERIDINE INJ 50 MG/ML VIAL IVP ONE (13:15)
[2023-09-15] MEDS ORDERED: morphine INJ 10 MG/ML 1ML (SYR OR VIAL) IVP ONE (13:15)
--- NOTE | 2023-09-15 15:23 | Diagnostic Imaging Report ---
INDICATION: Cystitis. COMPARISON: None. TOTAL NUMBER OF FLUOROSCOPIC IMAGES SAVED: 27. FINDINGS: Fluoroscopic guidance was provided intraoperatively during cholangiogram. Contrast opacifies the intra- and extra-hepatic biliary ducts. No abnormal intraluminal filling defects are seen. Contrast empties into the small bowel, as expected. Please note, interpreting radiologist was not present during the procedure. IMPRESSION: 1. Fluoroscopic guidance provided intraoperatively as above. Dictated by: Dictated on workstation # [id number]
--- NOTE | 2023-09-15 16:35 | Anesthesia-General Post-Op ---
General Patient Condition Mental Status/LOC: Same as Preop Cardiovascular: Satisfactory Nausea/Vomiting: Absent Respiratory: Satisfactory Pain: Controlled Complications: Absent Post Op Complications Complications None Follow Up Care/Instructions Patient Instructions None needed. Anesthesia/Patient Condition Patient Condition Patient is doing well, no complaints, stable vital signs, no apparent adverse anesthesia problems. No complications reported per nursing. VINH DARLING CRNA Sep 15, 2023 16:35
== END 2023-09-15 14:48 | disposition home or self-care (01) ==
LOC: SDC 08:57
PROVIDERS: ATTEND Surgery
DX: K80.10 Calculus of gallbladder with chronic cholecystitis without obstruction (principal); K21.9 Gastro-esophageal reflux disease without esophagitis; F17.210 Nicotine dependence, cigarettes, uncomplicated; Z79.899 Other long term (current) drug therapy
CPT/HCPCS: 76000; 84703; 87081; 88304

== ENCOUNTER 2023-09-17 20:04 | Emergency (ER) | payer MEDICAID ==
[2023-09-17] MEDS ORDERED: RX-ONDANSETRON 4 MG ODT (ZOFRAN) PPK #4 PO STA (20:13)
[2023-09-17] MEDS ORDERED: PROMETHAZINE INJ 25 MG/ML VIAL IM ONE (20:15)
--- NOTE | 2023-09-17 20:20 | ED GI ---
General Stated Complaint: POST OP, VOMITING Source of Information: Patient, Family Exam Limitations: No Limitations History of Present Illness Date Seen by Provider: Sep 17, 2023 Time Seen by Provider: 20:06 Initial Comments 38-year-old female is postop day 2 from a cholecystectomy coming in due to nonbloody nonbilious vomiting that started roughly 5 hours ago. She has taken her hydrocodone slightly more than prescribed today. She is passing flatus, but has not had a bowel movement since surgery. She is not taking anything for bowel movement such as MiraLAX. She did eat today. She denies any fever. She thinks her wounds look normal. Allergies and Home Medications Allergies Coded Allergies: No Known Drug Allergies (Unverified , 09/08/23) Patient Home Medication List Home Medication List Reviewed: Yes Famotidine (Acid [employer] (FAMOTIDINE)) 20 Mg Tablet, 20 MG PO BID, (Reported) Entered as Reported by: DEUCE BEDOLLA on 04/22/23 1220 Flaxseed Oil (Flaxseed Oil) 1,000 Mg Capsule, 1,000 MG PO DAILY, (Reported) Entered as Reported by: DEUCE BEDOLLA on 04/22/23 1220 Hydrocodone/Acetaminophen (Hydrocodone-Acetamin 5-325 mg) 5 Mg-325 Mg Tablet, 1 TAB PO Q8H PRN for PAIN-MODERATE (5-7) Prescribed by: PERLITA CAMPOS on 09/15/23 1258 Lisinopril (Lisinopril) 10 Mg Tablet, 10 MG PO DAILY, (Reported) Entered as Reported by: DEUCE BEDOLLA on 04/22/23 1220 Pantoprazole Sodium (Pantoprazole Sodium) 40 Mg Tablet.dr, 40 MG PO DAILY, (Reported) Entered as Reported by: DEUCE BEDOLLA on 04/22/23 1220 Sucralfate (Sucralfate) 100 Gm Powder, 100 GM MC QIDACHS, (Reported) Entered as Reported by: Gena Bejarano on 09/08/23 0916 Discontinued Medications Acetaminophen (Acetaminophen Extra Strength) 500 Mg Tablet, 1,000 MG PO Q8H, (Reported) Entered as Reported by: Gena Bejarano on 09/08/23 0916 Naproxen (Naproxen) 250 Mg Tablet, 250 MG PO PRN PRN for PAIN, (Reported) Entered as Reported by: DEUCE MENDIOLA on 04/22/23 1220 Review of Systems Review of Systems Constitutional: No fever EENTM: No Symptoms Reported Respiratory: No Symptoms Reported Cardiovascular: No Symptoms Reported Gastrointestinal: See HPI Genitourinary: No Symptoms Reported Musculoskeletal: no symptoms reported Skin: no symptoms reported Psychiatric/Neurological: No Symptoms Reported Past Pultmst-Jmehba-Duckhh Hx Seasonal Allergies Seasonal Allergies: Yes Past Medical History Surgery/Hospitalization HX: High blood pressure, Degenerative joint disease Surgeries: Yes (DC) Section Respiratory: Yes (HX OF COVID) Asthma, Pneumonia Currently Using CPAP: No Currently Using BIPAP: No Cardiac: Yes Hypertension Neurological: Yes Concussion, Headaches /Migraines Sexually Transmitted Disease: No Genitourinary: No Gastrointestinal: Yes Gastroesophageal Reflux, Esophagitis, Gall Bladder Disease Musculoskeletal: No Endocrine: No HEENT: Yes Chronic Ear Infection Loss of Vision: Denies Hearing Impairment: Denies Cancer: No Psychosocial: Yes (PANIC ATTACKS) Anxiety Integumentary: Yes Psoriasis Blood Disorders: No Physical Exam Vital Signs Capillary Refill : Height/Weight/BMI Height: '" Weight: lbs. oz. kg; 31.30 BMI Method:Stated General Appearance: WD/WN, mild distress HEENT: PERRL/EOMI, normal ENT inspection, pharynx normal Neck: non-tender, full range of motion, supple, normal inspection Respiratory: chest non-tender, lungs clear, normal breath sounds, no respiratory distress, no accessory muscle use Cardiovascular: regular rate, rhythm, no edema Gastrointestinal: normal bowel sounds, non tender, soft; No distended, No guarding, No rebound; other (Surgical wounds look clean, dry, intact, do not appear infected) Extremities: normal range of motion, non-tender, normal inspection, no pedal edema, no calf tenderness, normal capillary refill Back: normal inspection, no CVA tenderness Neurologic/Psychiatric: no motor/sensory deficits, alert, normal mood/affect Skin: normal color, warm/dry Procedures/Interventions Suture Size: 4-0, 5-0 Progress/Results/Core Measures Results/Orders My Orders Orders - JUAN FRANCISCO RAMAN MD Promethazine Injection (Promethazine I (09/17/23 20:15) Rx-Ondansetron Po (Rx-Zofran Po) (09/17/23 20:13) Progress Progress Note : Progress Note 38-year-old female presenting for postop nausea and vomiting. ABCs were intact and vitals were stable on presentation. Physical exam reassuring including a soft and nontender abdomen. She is passing flatus, but has not had a bowel movement, and is taking quite a bit of hydrocodone from her baseline. Clinically, she has a postop ileus. She is not obstructed as she is not having severe abdominal pain on exam, and is passing flatus. Will give her a Phenergan shot here followed by prescription for nausea medications. I also have recommended MiraLAX plus or minus a suppository to help with bowel movements. I believe she is stable for discharge with outpatient follow-up. She was sent home with strict return precautions. Departure Impression Primary Impression: Postoperative ileus Disposition: HOME, SELF-CARE Condition: Stable Departure-Patient Inst. Decision time for Depature: 20:30 Referrals: [facility]/ (PCP) Primary Care Physician HUA BARRAZA APRN (Family) Primary Care Physician Patient Instructions: Postoperative ileus Add. Discharge Instructions: Take the Zofran we sent home with you tonight, an x-ray was sent to your pharmacy as well as needed for nausea. If that is not working, you can add in the suppository of Phenergan. The most important thing is to get your bowels moving. Take MiraLAX at least 3 times tomorrow to try to get a bowel movement. If you are unable to have 1, then we recommend a suppository or an enema after that to help. MiraLAX, suppositories, and/or enemas are all purchased [id number]. Continue the MiraLAX as long as you are on the hydrocodone. If you are not feeling better by Wednesday, call Dr. Campos's office. Scripts Promethazine HCl (Promethazine Suppository) 25 Mg Supp.rect 25 MG RC Q8H PRN for NAUSEA/VOMITING-2ND LINE for 4 Days, #12 SUPP.RECT Prov: JUAN FRANCISCO RAMAN MD 09/17/23 Ondansetron (Ondansetron Odt) 4 Mg Tab.rapdis 4 MG SL Q6H PRN for NAUSEA/VOMITING for 5 Days, #20 TAB Prov: JUAN FRANCISCO RAMAN MD 09/17/23 JUAN FRANCISCO RAMAN MD Sep 17, 2023 20:20
[2023-09-17] MEDS ORDERED: ONDA4TAB11 SL (20:21)
[2023-09-17] MEDS ORDERED: PROM25SU44 RC (20:21)
[2023-09-17 20:34] VITALS: BP 142/83
== END 2023-09-17 20:34 | disposition home or self-care (01) ==
LOC: EDUNIT# 20:04 → ER FS 20:05
DX: K91.89 Other postprocedural complications and disorders of digestive system (principal)
CPT/HCPCS: 99284